=== PATIENT | female | born 1985 | race African-American/Black ===

== ENCOUNTER 2017-09-05 02:56 | Emergency (ER) | payer BC ==
--- NOTE | 2017-09-05 03:25 | RADIOLOGY REPORT (SQ) ---
EXAM DESCRIPTION: CT HEAD WITHOUT COMPLETED DATE/TIME: 09/05/2017 3:13 am REASON FOR STUDY: FALL WITH DIRECT BLOW TO HEAD COMPARISON: None. TECHNIQUE: Axial images acquired through the brain without intravenous contrast. Images reviewed wi th bone, brain and subdural windows. Images stored on PACS. All CT scanners at this facility use dose modulation, iterative reconstruction, and/or weight based d osing when appropriate to reduce radiation dose to as low as reasonably achievable (ALARA). [facility]: Dose Right [facility]: CareDose [facility]: Dose Right [facility]: Teradose 4D [facility]: [employer] RADIATION DOSE: Up-to-date CT equipment and radiation dose reduction techniques were employed. CTDIv ol: 64.6 mGy. DLP: 1163 mGy-cm. mGy. LIMITATIONS: None. FINDINGS: VENTRICLES: Normal size and contour. CEREBRUM: No mass effect. No hemorrhage. No midline shift. Normal booth/white matter differentiatio n. No evidence for acute territorial infarction. CEREBELLUM: No mass effect. No hemorrhage. No alteration of density. No evidence for acute infarct ion. EXTRAAXIAL SPACES: No fluid collections. ORBITS AND GLOBE: Symmetrical contour of the globes. CALVARIUM: No depressed skull fracture. PARANASAL SINUSES: No air-fluid level. SOFT TISSUES: No hematoma. IMPRESSION: NO ACUTE INTRACRANIAL IMAGING FINDINGS. EVIDENCE OF ACUTE STROKE: NO. COMMENT: Quality ID # [id number]: Final reports with documentation of one or more dose reduction techniques (e.g., Automated exposure control, adjustment of the mA and/or kV according to patient size, use of iterative reconstruction technique) TECHNICAL DOCUMENTATION: JOB ID: [id number] [employer]- All Rights Reserved
[2017-09-05] MEDS ORDERED: OXYCODONE HCL IR 5 MG TABLET PO ONE (03:27)
[2017-09-05] MEDS ORDERED: ONDANSETRON 4 MG TAB.RAPDIS PO ONE (03:27)
--- NOTE | 2017-09-05 03:29 | ER Document Report ---
ED Fall - General Chief Complaint: Fall Stated Complaint: RIGHT ARM PAIN,HEADACHE Time Seen by Provider: 09/05/17 03:27 Notes: Patient is a 31-year-old female comes emergency department for chief complaint of fall injury. She states that she was having intercourse with her when she accidentally fell off the bed which is about 3-1/2 feet off the ground onto a carpet floor, she hit her head on the right side, she hit her right elbow on the floor. She states she was dazed for about 15 seconds and then she threw up. She states she feels mildly nauseated at this time but currently her only painful area is her right elbow. She denies back pain, numbness, visual changes , current headache. She takes no daily medications. TRAVEL OUTSIDE OF THE U.S. IN LAST 30 DAYS: No - Related data Allergies/Adverse Reactions: acetaminophen Adverse Reaction (Verified 09/05/17 03:04) Past Medical History - General Information source: Patient - Social History Smoking Status: Never Smoker Frequency of alcohol use: None Drug Abuse: None Lives with: Family Family History: Reviewed & Not Pertinent Patient has suicidal ideation: No Patient has homicidal ideation: No - Medical History Medical History: Negative Renal/ Medical History: Denies: Hx Peritoneal Dialysis Past Surgical History: Reports: Hx Tonsillectomy - Immunizations Immunizations up to date: Yes Hx Diphtheria, Pertussis, Tetanus Vaccination: Yes Review of Systems - Review of Systems Constitutional: No symptoms reported EENT: No symptoms reported Cardiovascular: No symptoms reported Respiratory: No symptoms reported Gastrointestinal: See HPI Genitourinary: No symptoms reported Female Genitourinary: No symptoms reported Musculoskeletal: See HPI Skin: No symptoms reported Hematologic/Lymphatic: No symptoms reported Neurological/Psychological: See HPI Physical Exam - Vital signs Vitals: Temp Pulse Resp BP Pulse Ox 98.4 F 76 16 113/71 98 09/05/17 02:59 09/05/17 02:59 09/05/17 02:59 09/05/17 02:59 09/05/17 02:59 Interpretation: Normal - General General appearance: Appears well, Alert In distress: None - HEENT Head: Normocephalic, Atraumatic Eyes: Normal Pupils: PERRL - Respiratory Respiratory status: No respiratory distress Chest status: Nontender Breath sounds: Normal Chest palpation: Normal - Cardiovascular Rhythm: Regular Heart sounds: Normal auscultation Murmur: No - Abdominal Inspection: Normal Distension: No distension Bowel sounds: Normal Tenderness: Nontender Organomegaly: No organomegaly - Back Back: Normal, Nontender. No: Tender, Vertebra tenderness - No tenderness over the neck/cervical spine, thoracic spine, lumbar spine, full range of motion of all extremities except for painful movement of the right elbow, normal distal neurovascular exam, no saddle anesthesia, no ecchymosis or signs of trauma - Extremities General upper extremity: Other - Pain specifically over the right elbow joint, patient complains with range of motion of the elbow, no swelling or bruising noted, normal shoulder, wrist, hand exam. General lower extremity: Normal inspection, Nontender, Normal color, Normal ROM , Normal temperature, Normal weight bearing. No: Teresa's sign - Neurological Neuro grossly intact: Yes Cognition: Normal Orientation: AAOx4 [place] Coma Scale Eye Opening: Spontaneous Andres Coma Scale Verbal: Oriented Andres Coma Scale Motor: Obeys Commands [place] Coma Scale Total: 15 Speech: Normal Motor strength normal: LUE, RUE, LLE, RLE Sensory: Normal - Psychological Associated symptoms: Normal affect, Normal mood - Skin Skin Temperature: Warm Skin Moisture: Dry Skin Color: Normal Course - Re-evaluation Re-evalutation: Normal neurological exam. Patient does not appear to be in any distress, she is alert and well-appearing. Unremarkable back exam, patient complaining of a lot of pain over the elbow but no signs of trauma, x-ray unremarkable. CT was performed by triage before I saw the patient, she did have an episode of vomiting reportedly, she does not have a headache on my evaluation, neurological exam is normal, no concerning deficits or symptoms reported otherwise. Discussed postconcussive syndrome, head injury precautions, patient was provided with a sling for her elbow because she wanted it. Discussed range of motion of the elbow, treatment of the elbow and head injury, follow-up recommendations, return precautions. Patient and family state understanding and agreement. - Vital Signs Vital signs: Temp Pulse Resp BP Pulse Ox 98.5 F 88 18 110/75 98 09/05/17 05:15 09/05/17 05:15 09/05/17 05:15 09/05/17 05:15 09/05/17 05:15 Discharge - Discharge Clinical Impression: Right elbow pain Fall Qualifiers: Encounter type: initial encounter Qualified Code(s): W19.XXXA - Unspecified fall, initial encounter Head injury Qualifiers: Encounter type: initial encounter Qualified Code(s): S09.90XA - Unspecified injury of head, initial encounter Condition: Stable Disposition: HOME, SELF-CARE Additional Instructions: CAT scan of the head and x-ray of the elbow show no concerning findings. You most likely will have some postconcussive symptoms after hitting your head, this will resolve with time, see postconcussive symptoms instructions below. Ice the elbow 3-4 times for 10-15 minutes today, take the medications as prescribed. Also follow the head injury precautions listed below. Return to the emergency department for any concerning symptoms. Head Injury Precautions At this point, there is no evidence that your head injury is serious. Observation is necessary, however. Take only clear liquids for the first few hours, unless told otherwise by the doctor. If no pain medication was prescribed, you may take acetaminophen according to the directions on the bottle. Do not take any medication that may alter your level of alertness (unless you've discussed it with the doctor first) . Limit activity for the first 24 hours. Bed rest is best. During the first 24 hours, check to see approximately every two to three hours that the patient is easily arousable, responds normally, and can perform common tasks such as walking without difficulty. Contact your doctor or go to the hospital if any of the following things occur: Persistent vomiting, difficulty in arousing the patient, worsening or continued headache, or failure to improve as expected. Head injuries can cause symptoms that persist for a few days or even a few weeks. Post-Concussion Syndrome Post-concussion syndrome often follows a head injury. Dizziness, mild nausea, mild headache, trouble concentrating, and a general sense of "not being right" may persist for a week or two. This is a frequent complication of concussion. However, if the symptoms worsen, or new symptoms develop, you should be re- examined by the physician. There is no specific cure for post-concussion syndrome. You can take mild pain medication such as ibuprofen or acetaminophen. While you should not drive if you are dizzy, you can get back to your regular activities as quickly as the symptoms will allow. And while vigorous exercise may worsen the headache, mild physical activity often is helpful. Sitting and thinking about your symptoms will worsen them. If difficulties continue, you may need referral for special therapy to help you regain full mental function. Call the physician if you are worsening, or if symptoms are still present in one week. Report any new symptoms immediately. Prescriptions: Methocarbamol [Robaxin 500 mg Tablet] 500 mg PO QID PRN #20 tablet PRN Reason: Naproxen [Naprosyn 375 Mg Tablet] 375 mg PO BID #20 tablet Forms: Return to Work, Treatment of Relative/Child
--- NOTE | 2017-09-05 04:08 | RADIOLOGY REPORT (SQ) ---
EXAM DESCRIPTION: ELBOW RIGHT OVER 2 VIEWS COMPLETED DATE/TIME: 09/05/2017 3:25 am REASON FOR STUDY: FALL . Pain at the posterior aspect of the right elbow. COMPARISON: None. NUMBER OF VIEWS: Four views. TECHNIQUE: AP, lateral, and both oblique radiographic images acquired of the right elbow. LIMITATIONS: None. FINDINGS: MINERALIZATION: Normal. BONES: No acute fracture or dislocation. JOINT: No effusion. SOFT TISSUES: No soft tissue swelling. No radiopaque foreign body. IMPRESSION: NO RADIOGRAPHIC EVIDENCE OF ACUTE INJURY. TECHNICAL DOCUMENTATION: JOB ID: [id number] [place]-[id number] 2010 [employer]- All Rights Reserved
[2017-09-05 05:16] VITALS: BP 110/75
== END 2017-09-05 05:15 | disposition home or self-care (01) ==
LOC: ER 02:56
DX: S09.90XA Unspecified injury of head, initial encounter (principal); M25.521 Pain in right elbow; W06.XXXA Fall from bed, initial encounter; Y93.89 Activity, other specified; R11.2 Nausea with vomiting, unspecified
CPT/HCPCS: 99284; 73080; 70450; S0119

== ENCOUNTER 2018-04-12 03:23 | Emergency (ER) | payer BC ==
[2018-04-12 03:49] VITALS: BP 139/67
== END 2018-04-12 05:04 | disposition left against medical advice (07) ==
LOC: ER 03:23
DX: Z53.21 Procedure and treatment not carried out due to patient leaving prior to being seen by health care provider (principal)

== ENCOUNTER 2018-04-12 11:53 | Emergency (ER) | payer BC, OTHER ==
[2018-04-12] MEDS ORDERED: MAG HYDROX/AL HYDROX/SIMETH SUSP 30 ML UDCUP PO ONE (12:25)
[2018-04-12] MEDS ORDERED: LIDOCAINE 2% VISCOUS SOLN 20 ML UDCUP PO ONE (12:25)
--- NOTE | 2018-04-12 12:28 | ER Document Report ---
ED Medical Screen (RME) - General Chief Complaint: Pain All Over Stated Complaint: ABDOMINAL PAIN Time Seen by Provider: 04/12/18 12:10 Notes: RAPID MEDICAL EVALUATION DISCLOSURE I have seen this patient as part of a Rapid Medical Evaluation and, if applicable, placed any initially appropriate orders. The patient will be seen and fully evaluated, including a full history and physical exam, by a provider ( in Main ED or Fast Track) when a room becomes available. 32-year-old female here with complaints of "skin pain", shortness of breath, headache, and abdominal pain ongoing for the past few days. She has also had constipation and black stools. She was seen at the [facility] and was diagnosed with GI bleed and placed on Prilosec. She states that when she started taking the Prilosec is when she started to have these other symptoms. She denies any nausea vomiting diarrhea dysuria. She does drink a sixpack of alcohol every weekend but denies any history of pancreatitis colitis diverticulitis. At the [facility], they thought she had peptic ulcers so they started her on the Prilosec for this reason. EXAM CTAB Mild to moderate diffuse TTP Patient screams in pain when her skin is touched very lightly TRAVEL OUTSIDE OF THE U.S. IN LAST 30 DAYS: No - Related Data Allergies/Adverse Reactions: acetaminophen Adverse Reaction (Verified 04/12/18 11:56) Past Medical History - Social History Chew tobacco use (# tins/day): No Frequency of alcohol use: Social Drug Abuse: None Renal/ Medical History: Denies: Hx Peritoneal Dialysis GI Medical History: Reports: Hx Ulcer Past Surgical History: Reports: Hx Tonsillectomy - Immunizations Immunizations up to date: Yes Hx Diphtheria, Pertussis, Tetanus Vaccination: Yes Physical Exam - Vital signs Vitals: Temp Pulse Resp BP Pulse Ox 97.9 F 98 24 H 112/65 100 04/12/18 12:03 04/12/18 12:03 04/12/18 12:03 04/12/18 12:03 04/12/18 12:03 Course - Vital Signs Vital signs: Temp Pulse Resp BP Pulse Ox 97.9 F 98 24 H 112/65 100 04/12/18 12:03 04/12/18 12:03 04/12/18 12:03 04/12/18 12:03 04/12/18 12:03
--- NOTE | 2018-04-12 12:49 | ER Document Report ---
ED General <JOSE WALSH - Last Filed: 04/12/18 21:36> - General Mode of Arrival: Ambulatory Information source: Patient, Parent, Relative - TRAVEL OUTSIDE OF THE U.S. IN LAST 30 DAYS: No <KYLEIGH COREY - Last Filed: 04/13/18 08:24> - General Chief Complaint: Pain All Over Stated Complaint: ABDOMINAL PAIN Time Seen by Provider: 04/12/18 12:10 - HPI Notes: 32-year-old female with a history of peptic ulcers presents to the ED with complaints of fever, shortness of breath, headache, nausea, abdominal pain with feeling of burning skin all over. Patient was diagnosed with a lower GI bleed at the [facility] 6 days ago, due to having a positive occult stool, was started on oral omeprazole. Patient states her headaches started when she started to take the omeprazole. Patient returned from a road trip to [place] last night, was in the car for 8 hours to and from [place]. Patient's shortness of breath started last night along with her fever. Patient states that they did drink alcohol while in [place] as he had a family libertarian for . Patient did not get a flu shot this year. Denies . Aside from Prilosec, no new medications. Patient typically has a bowel movement 1-2 times a week, denies any geo blood in stool. States her last bowel movement was 5 days ago, which is normal for her. Patient is supposed to follow-up with her primary care provider at the [facility] for her lower GI bleed next week. gave patient ibuprofen this morning to help fight the fever. Patient allergy to Tylenol as that she gets rebound headaches. Denies any trauma to body. Denies chest pain,palpitations, vomiting, diarrhea, abdominal pain, hematuria,blurred vision, double vision, loss of vision, speech changes, LH, dizziness, syncope, wheezing, ST, URI, neck pain, weakness, bowel or bladder dysfunction, saddle anesthesia, numbness or tingling in bilateral upper or lower extremities equally , muscle paralysis, weakness in bilateral upper or lower extremities equally or rash. Denies IV drug use. (KYLEIGH CROEY) - Related Data Allergies/Adverse Reactions: acetaminophen Adverse Reaction (Verified 04/12/18 11:56) Past Medical History - General Information source: Patient, Parent, Relative - Social History Smoking Status: Current Some Day Smoker Chew tobacco use (# tins/day): No Frequency of alcohol use: Social Drug Abuse: None Family History: Reviewed & Not Pertinent Patient has suicidal ideation: No Patient has homicidal ideation: No Renal/ Medical History: Denies: Hx Peritoneal Dialysis GI Medical History: Reports: Hx Ulcer Past Surgical History: Reports: Hx Tonsillectomy - Immunizations Immunizations up to date: Yes Hx Diphtheria, Pertussis, Tetanus Vaccination: Yes <KYLEIGH COREY - Last Filed: 04/13/18 08:24> Review of Systems - Review of Systems Constitutional: See HPI EENT: No symptoms reported Cardiovascular: No symptoms reported Respiratory: See HPI Gastrointestinal: See HPI Genitourinary: No symptoms reported Female Genitourinary: No symptoms reported Musculoskeletal: No symptoms reported Skin: See HPI Hematologic/Lymphatic: No symptoms reported Neurological/Psychological: No symptoms reported <KYLEIGH COREY - Last Filed: 04/13/18 08:24> Physical Exam <JOSE WALSH - Last Filed: 04/12/18 21:36> <KYLEIGH COREY - Last Filed: 04/13/18 08:24> - Vital signs Vitals: Temp Pulse Resp BP Pulse Ox 97.9 F 98 24 H 112/65 100 04/12/18 12:03 04/12/18 12:03 04/12/18 12:03 04/12/18 12:03 04/12/18 12:03 - Notes Notes: PHYSICAL EXAMINATION: GENERAL: Well-appearing, well-nourished and in no acute distress. HEAD: Atraumatic, normocephalic. EYES: Pupils equal round and reactive to light, extraocular movements intact, conjunctiva are normal. ENT: Nares patent, oropharynx clear without exudates. Moist mucous membranes. NECK: Normal range of motion, supple without lymphadenopathy LUNGS: Breath sounds clear to auscultation bilaterally and equal. No wheezes rales or rhonchi. HEART: Regular rate and rhythm without murmurs ABDOMEN: Soft, nontender, nondistended abdomen. No guarding, no rebound. No masses appreciated. Female : deferred Musculoskeletal: Normal range of motion, no pitting or edema. No cyanosis. NEUROLOGICAL: Cranial nerves grossly intact. Normal speech, normal gait. Normal sensory, motor exams PSYCH: Normal mood, normal affect. SKIN: Warm, Dry, normal turgor, no rashes or lesions noted. (KYLEIGH COREY) Course - Laboratory Result Diagrams: 04/12/18 12:35 04/12/18 12:35 <JOSE WALSH - Last Filed: 04/12/18 21:36> - Laboratory Result Diagrams: 04/12/18 12:35 04/12/18 12:35 <KYLEIGH COREY - Last Filed: 04/13/18 08:24> - Re-evaluation Re-evalutation: 04/12/18 21:35 Venous Doppler is negative. Patient asymptomatic on reevaluation, eating, well- appearing, asking to leave. Patient provided a copy of her abnormal ultrasound which shows fibroid versus neoplasm. Provided with copy of the report and a disc, instructed her to call on Friday provider to get [facility] so she can be seen and have this treated. Discussed return precautions. Discussed medication prescriptions. Patient and family state understanding and agreement. (JOSE WALSH) 04/12/18 18:54 32-year-old female afebrile, vitals stable and in no distress presents for evaluation of shortness of breath, fever, abdominal pain with recent travel to [place] via private car and returned last night with symptoms had begun. CBC negative for leukocytosis, patient is slightly anemic. CMP negative for renal or hepatic deficiencies, no electrolyte disturbances. Urinalysis was negative for nitrates hematuria. Patient did have an elevated d-dimer at 1.50. Cardiac enzymes negative, EKG negative for STEMI or acute findings. Occult stool negative. Influenza negative. CT negative for any acute PE, dissecting aortic aneurysm. CTA negative for any acute trauma abdominal pathologies. CT pelvis showed a hyperdense mass to endometrial canal, will obtain transvaginal ultrasound with Doppler. Bleeding venous Doppler bilateral ultrasounds due to elevated d-dimer. Patient remains asymptomatic, vitals stable and in no distress. Patient given IV fluids. Disposition given to MARYBETH Stephenson at 1915 (KYLEIGH COREY) - Vital Signs Vital signs: Temp Pulse Resp BP Pulse Ox 98.0 F 98 24 H 110/77 100 04/12/18 22:01 04/12/18 12:03 04/12/18 22:01 04/12/18 22:01 04/12/18 21:32 - Laboratory Laboratory results interpreted by me: 04/12/18 04/12/18 04/12/18 12:35 12:35 15:00 Hgb 11.1 L Hct 34.5 L MCV 78 L MCH 25.0 L RDW 17.1 H Seg Neutrophils % 90.2 H Lymphocytes % 5.7 L Absolute Lymphocytes 0.3 L D-Dimer 1.33 H Urine Urobilinogen 2.0 H Ur Leukocyte Esterase TRACE H Discharge <FLORATRANGJOSE - Last Filed: 04/12/18 21:36> <MADHAVKYLEIGH Crow - Last Filed: 04/13/18 08:24> - Discharge Clinical Impression: Gastritis Qualifiers: Gastritis type: other gastritis Chronicity: acute Gastritis bleeding: without bleeding Qualified Code(s): K29.00 - Acute gastritis without bleeding Condition: Good Disposition: HOME, SELF-CARE Instructions: Dehydration ([facility]), Gastritis ([facility]) Additional Instructions: Follow-up with [facility] [employer] [employer] and primary care provider as directed. Stop taking omeprazole and take Pepcid as directed. Follow a bland diet. Prescriptions: Famotidine [Pepcid 20 mg Tablet] 20 mg PO DAILY #30 tablet Ondansetron [Zofran Odt 4 mg Tablet] 1 - 2 tab PO Q4H PRN #15 tab.rapdis PRN Reason: For Nausea/Vomiting Forms: Parent Work Note, Return to Work Referrals: KIMBERLY DILLON MD [ACTIVE STAFF] - Follow up in 3-5 days ADILIA RUFF MD [COMMUNITY BASED STAFF] - Follow up in 1 month
[2018-04-12 12:52] LABS: ABSOLUTE LYMPHOCYTES (AUTO) 0.3 10^3/uL (0.5-4.7); ABSOLUTE MONOCYTES (AUTO) 0.2 10^3/uL (0.1-1.4); ABSOLUTE NEUT (AUTO) 4.2 10^3/uL (1.7-8.2); BASOPHILS % (AUTO) 0.3 % (0-2); EOSINOPHILS % (AUTO) 0.1 % (0-6); HEMATOCRIT 34.5 % (36.0-47.0); HEMOGLOBIN 11.1 g/dL (12.0-15.5); LYMPHOCYTES % (AUTO) 5.7 % (13-45); MEAN CORPUSCULAR HGB CONC 32.1 g/dL (32.0-36.0); MEAN CORPUSCULAR VOLUME 78 fl (80-97); MONOCYTES % (AUTO) 3.7 % (3-13); PLATELET COUNT 329 10^3/uL (150-450); RED BLOOD COUNT 4.42 10^6/uL (3.72-5.28); RED CELL DISTRIBUTION WIDTH 17.1 % (11.5-14.0); SEGMENTED NEUTROPHILS % (AUTO) 90.2 % (42-78); TOTAL CELLS COUNTED % (AUTO) 100 %; WHITE BLOOD COUNT 4.7 10^3/uL (4.0-10.5)
[2018-04-12 13:11] LABS: ALANINE AMINOTRANSFERASE 13 U/L (9-52); ALBUMIN 4.1 g/dL (3.5-5.0); ALKALINE PHOSPHATASE 49 U/L (38-126); ANION GAP 12 (5-19); ASPARTATE AMINO TRANSFERASE 27 U/L (14-36); BILIRUBIN,DIRECT 0.2 mg/dL (0.0-0.4); BILIRUBIN,TOTAL 0.9 mg/dL (0.2-1.3); BLOOD UREA NITROGEN 10 mg/dL (7-20); CALCIUM 9.5 mg/dL (8.4-10.2); CARBON DIOXIDE 26 mmol/L (22-30); CHLORIDE 104 mmol/L (98-107); GLUCOSE 101 mg/dL (75-110); LIPASE 57.3 U/L (23-300); POTASSIUM 3.8 mmol/L (3.6-5.0); SODIUM 141.9 mmol/L (137-145); TOTAL PROTEIN 7.4 g/dL (6.3-8.2)
[2018-04-12] MEDS ORDERED: NORMAL SALINE 1000 ML 1,000 ML IV ONE (13:16)
[2018-04-12] MEDS ORDERED: MORPHINE SULFATE 10 MG/ML INJ IV ONE ×2 (13:16→18:09)
--- NOTE | 2018-04-12 13:17 | RADIOLOGY REPORT (SQ) ---
EXAM DESCRIPTION: ACUTE ABDOMEN SERIES COMPLETED DATE/TIME: 04/12/2018 1:03 pm REASON FOR STUDY: SOB abd pain COMPARISON: None. NUMBER OF VIEWS: Three views. TECHNIQUE: Frontal chest, supine abdomen and upright/decubitus abdomen radiographic images acquired. LIMITATIONS: None. FINDINGS: CHEST: Lungs clear of infiltrates. FREE AIR: None. No abnormal gas collections. BOWEL GAS PATTERN: Nonobstructive pattern. No dilated loops or air fluid levels. CALCIFICATIONS: No suspicious calcifications. HARDWARE: None in the abdomen. SOFT TISSUES: No gross mass or suggestion of organomegaly. BONES: No acute fracture. No worrisome bone lesions. OTHER: No other significant finding. IMPRESSION: NO RADIOGRAPHIC EVIDENCE FOR ACUTE ABDOMINAL DISEASE. TECHNICAL DOCUMENTATION: JOB ID: [id number] [employer]- All Rights Reserved Reading location - IP/workstation name: [email or web address]
[2018-04-12 13:53] LABS: CREATINE KINASE MB 0.28 ng/mL (<4.55)
[2018-04-12 13:54] LABS: TROPONIN I < 0.012 ng/mL
[2018-04-12 13:56] LABS: A TYPE INFLUENZA AG NEGATIVE (NEGATIVE); B INFLUENZA AG NEGATIVE (NEGATIVE)
[2018-04-12 15:28] LABS: APPEARANCE,URINE CLEAR; BILIRUBIN,URINE NEGATIVE (NEGATIVE); COLOR,URINE YELLOW; GLUCOSE, URINE NEGATIVE (NEGATIVE); KETONES,URINE NEGATIVE (NEGATIVE); LEUKOCYTE ESTERASE,URINE TRACE (NEGATIVE); NITRITE,URINE NEGATIVE (NEGATIVE); PROTEIN,URINE NEGATIVE (NEGATIVE)
--- NOTE | 2018-04-12 16:54 | RADIOLOGY REPORT (SQ) ---
EXAM DESCRIPTION: CT ABD/PELVIS WITH IV ORAL COMPLETED DATE/TIME: 04/12/2018 4:24 pm REASON FOR STUDY: fever, abd pain with hx of GI bleed dx on 04/06 . Diffuse abdominal pain. COMPARISON: None. TECHNIQUE: CT scan of the abdomen and pelvis performed using helical scanning technique with dynamic intravenous contrast injection. No oral contrast. Images reviewed with lung, soft tissue, and bone windows. Reconstructed coronal and sagittal MPR images reviewed. Delayed images for evaluation of the urinary system also acquired. All images stored on PACS. All CT scanners at this facility use dose modulation, iterative reconstruction, and/or weight based d osing when appropriate to reduce radiation dose to as low as reasonably achievable (ALARA). [facility]: Dose Right [facility]: CareDose [facility]: Dose Right [facility]: Teradose 4D [facility]: [employer] CONTRAST TYPE AND DOSE: contrast/concentration: Isovue 370.00 mg/ml; Total Contrast Delivered: 72.0 ml; Total Saline Delivered: 66.0 ml RENAL FUNCTION: Creatinine: 0.7 RADIATION DOSE: CT Rad equipment meets quality standard of care and radiation dose reduction techniq ues were employed. CTDIvol: 6.6 - 8.6 mGy. DLP: 822 mGy-cm.. LIMITATIONS: None. FINDINGS: LOWER CHEST: Chronic scarring in lung bases. LIVER: No abnormality seen. SPLEEN: No abnormality seen. PANCREAS: No abnormality seen. GALLBLADDER: No abnormality seen. ADRENAL GLANDS: No abnormality seen. RIGHT KIDNEY AND URETER: No abnormality seen. LEFT KIDNEY AND URETER: No abnormality seen. AORTA AND VESSELS: No abnormality seen. Renal arteries, SMA, celiac without stenosis. RETROPERITONEUM: No retroperitoneal adenopathy, hemorrhage or masses. Retroaortic left renal vein. BOWEL AND PERITONEAL CAVITY: No masses or inflammatory changes. No free fluid or peritoneal masses. APPENDIX: No abnormality seen. PELVIS: Uterus: Uterus is prominent with evidence of uterine fibroids anteriorly. Centrally within the uterus there is evidence of a prominent mass which could be secondary to hemorrhage within the en dometrial canal. Follow-up with pelvic ultrasound could be useful. Urinary bladder: No abnormality seen. Adnexal regions: Follicles of the ovaries. Follicular cyst of right ovary. ABDOMINAL WALL: No masses. No hernias. BONES: No abnormality seen. No abnormality. IMPRESSION: 1. Enlarged fibroid uterus. Within the uterus there is a prominent hyperdense mass or endometrial thickening or hemorrhage of the endometrial canal. Follow-up with ultrasound could be u ses further evaluation. TECHNICAL DOCUMENTATION: JOB ID: [id number] Quality ID # [id number]: Final reports with documentation of one or more dose reduction techniques (e.g., Au tomated exposure control, adjustment of the mA and/or kV according to patient size, use of iterative reconstruction technique) 2010 [employer]- All Rights Reserved Reading location - IP/workstation name: [email or web address]
[2018-04-12] MEDS ORDERED: NORMAL SALINE 1000 ML 1,000 ML IV PRN ×2 (18:03→18:04)
--- NOTE | 2018-04-12 18:42 | RADIOLOGY REPORT (SQ) ---
EXAM DESCRIPTION: CTA CHEST COMPLETED DATE/TIME: 04/12/2018 6:23 pm REASON FOR STUDY: elevated ddimer COMPARISON: None. TECHNIQUE: CT scan of the chest performed using helical scanning technique with dynamic intravenous contrast injection. Images reviewed with lung, soft tissue and bone windows. Reconstructed coronal and sagittal MPR images reviewed. Additional 3 dimensional post-processing performed to develop Maximal Intensity Projection images (ID P). All images stored on PACS. All CT scanners at this facility use dose modulation, iterative reconstruction, and/or weight based d osing when appropriate to reduce radiation dose to as low as reasonably achievable (ALARA). [facility]: Dose Right [facility]: CareDose [facility]: Dose Right [facility]: Teradose 4D [facility]: [facility] [place] CONTRAST TYPE AND DOSE: contrast/concentration: Isovue 370.00 mg/ml; Total Contrast Delivered: 65.0 ml; Total Saline Delivered: 105.0 ml Contrast bolus optimized for the pulmonary arteries. Not diagnostic for the aorta. RENAL FUNCTION: BUN 10 creatinine 0.7. RADIATION DOSE: CT Rad equipment meets quality standard of care and radiation dose reduction techniq ues were employed. CTDIvol: 14.3 - 19.8 mGy. DLP: 515 mGy-cm. . LIMITATIONS: None. FINDINGS: LUNGS AND PLEURA: No masses, infiltrates, pneumothorax. No pleural effusions, calcificati ons. AORTA AND GREAT VESSELS: No aneurysm. Contrast bolus not optimized for the aorta. HEART: No pericardial effusion. No significant coronary artery calcifications. PULMONARY ARTERIES: No emboli visualized in the main pulmonary arteries or the segmental branches. HILAR AND MEDIASTINAL STRUCTURES: No identified masses or abnormal nodes. HARDWARE: None in the chest. UPPER ABDOMEN: No significant findings. Limited exam. THYROID AND OTHER SOFT TISSUES: No masses. No adenopathy. BONES: No acute or significant finding. 3D MIPS: Confirm above findings. OTHER: No other significant finding. IMPRESSION: NORMAL CTA OF THE CHEST. NO PULMONARY EMBOLI. COMMENT: Quality ID # [id number]: Final reports with documentation of one or more dose reduction techniques (e.g., Automated exposure control, adjustment of the mA and/or kV according to patient size, use of iterative reconstruction technique) TECHNICAL DOCUMENTATION: JOB ID: [id number] [employer]- All Rights Reserved Reading location - IP/workstation name: [email or web address]
--- NOTE | 2018-04-12 21:10 | RADIOLOGY REPORT (SQ) ---
EXAM DESCRIPTION: VENOUS BILATERAL LOWER COMPLETED DATE/TIME: 04/12/2018 9:02 pm REASON FOR STUDY: elevated d dimer, r/o dvt, recent car trip to [place] COMPARISON: None. TECHNIQUE: Dynamic and static booth scale and color images acquired of both lower extremity venous sy stems. Selected spectral images acquired with additional compression and augmentation maneuvers. Imag es stored on PACS. LIMITATIONS: None. FINDINGS: RIGHT LEG COMMON FEMORAL AND FEMORAL: Normal phasicity, compression and augmentation. No visualized echogenic m aterial on booth scale. No defects on color images. POPLITEAL: Normal compression and augmentation. No visualized echogenic material on booth scale. No de fects on color images. CALF VESSELS: Normal compression and augmentation. No visualized echogenic material on booth scale. No defects on color image. GSV AND SSV: Normal compression. No visualized echogenic material on booth scale. No defects on color images. ANY DEEP VENOUS INSUFFICIENCY: Not evaluated. ANY EVIDENCE OF POPLITEAL CYST: No. OTHER: No other significant finding. LEFT LEG COMMON FEMORAL AND FEMORAL: Normal phasicity, compression and augmentation. No visualized echogenic m aterial on booth scale. No defects on color images. POPLITEAL: Normal compression and augmentation. No visualized echogenic material on booth scale. No de fects on color images. CALF VESSELS: Normal compression and augmentation. No visualized echogenic material on booth scale. No defects on color images. GSV AND SSV: Normal compression. No visualized echogenic material on booth scale. No defects on color images. ANY DEEP VENOUS INSUFFICIENCY: Not evaluated. ANY EVIDENCE POPLITEAL CYST: No. OTHER: No other significant finding. IMPRESSION: NO EVIDENCE DVT OR SVT IN EITHER LEG. TECHNICAL DOCUMENTATION: JOB ID: [id number] [employer]- All Rights Reserved Reading location - IP/workstation name: [email or web address]
--- NOTE | 2018-04-12 21:10 | RADIOLOGY REPORT (SQ) ---
EXAM DESCRIPTION: U/S NON OB PEL TV W/DOPPLER COMPLETED DATE/TIME: 04/12/2018 8:57 pm REASON FOR STUDY: hyperdense mass vs. hemorrhage of endo canal COMPARISON: CT dated 04/12/2018. TECHNIQUE: Dynamic and static grayscale images acquired of the pelvis via transvaginal approach and recorded on PACS. Additional selected color Doppler and spectral images recorded. LIMITATIONS: None. FINDINGS: UTERUS: Contour normal. No mass. ENDOMETRIAL STRIPE: Heterogenous mass within the endometrial canal measuring 4.9 x 6 x 6.3 cm[address] er evaluation demonstrates blood flow. CERVIX: No nabothian cysts. RIGHT OVARY AND DOPPLER: Ovary not visualized. LEFT OVARY AND DOPPLER: Ovary not visualized. FREE FLUID: None noted. OTHER: No other significant finding. MEASUREMENTS: UTERUS: 8.1 x 11.3 cm. ENDOMETRIAL STRIPE: 2.4 cm. RIGHT OVARY: Not visualized. LEFT OVARY: Not visualized. IMPRESSION: HETEROGENOUS MASS WITHIN THE ENDOMETRIAL CANAL. THIS COULD BE A SUBMUCOSAL FIBROID VERS US OTHER ENDOMETRIAL NEOPLASM. TECHNICAL DOCUMENTATION: JOB ID: [id number] [employer]- All Rights Reserved Rev-04/03 Reading location - IP/workstation name: [email or web address]
[2018-04-12 22:08] VITALS: BP 110/77
--- NOTE | 2018-04-12 23:22 | EKG REPORT ---
SEVERITY:- NORMAL ECG - SINUS RHYTHM : Confirmed by: Vijay Moss MD 12-Apr-2018 23:21:45
== END 2018-04-12 22:11 | disposition home or self-care (01) ==
LOC: ER 11:53
DX: K29.00 Acute gastritis without bleeding (principal); M79.1 Myalgia; R06.02 Shortness of breath; R50.9 Fever, unspecified; R51 Headache; R11.0 Nausea; R10.9 Unspecified abdominal pain; F17.200 Nicotine dependence, unspecified, uncomplicated
CPT/HCPCS: 93005; 96376; 99284; 96361; 96374; 36415; 87086; 82553; 82550; 83690; 84703; 85025; 82272; 80053; 81001; 84484; 85379; 83605; 87804; 93970; 74022; 76830; 93976; 71275; 74177; 93010; J3490; J2270; J7030

== ENCOUNTER 2020-01-28 05:29 | Day surgery (SDC) | payer OTHER, BC ==
[2020-01-25 11:24] LABS: APPEARANCE,URINE SLIGHTLY-CLOUDY; BILIRUBIN,URINE NEGATIVE (NEGATIVE); COLOR,URINE YELLOW; GLUCOSE, URINE NEGATIVE (NEGATIVE); KETONES,URINE NEGATIVE (NEGATIVE); LEUKOCYTE ESTERASE,URINE NEGATIVE (NEGATIVE); NITRITE,URINE NEGATIVE (NEGATIVE); PROTEIN,URINE NEGATIVE (NEGATIVE); URINE SPECIFIC GRAVITY 1.021; UROBILINOGEN,URINE NEGATIVE mg/dL (<2.0)
[2020-01-25 11:30] LABS: ALBUMIN 4.5 g/dL (3.5-5.0); ALKALINE PHOSPHATASE 47 U/L (38-126); ANION GAP 10 (5-19); ASPARTATE AMINO TRANSFERASE 23 U/L (14-36); BILIRUBIN,DIRECT 0.2 mg/dL (0.0-0.4); BILIRUBIN,TOTAL 0.4 mg/dL (0.2-1.3); BLOOD UREA NITROGEN 8 mg/dL (7-20); CARBON DIOXIDE 23 mmol/L (22-30); CHLORIDE 107 mmol/L (98-107); GLUCOSE 84 mg/dL (75-110); POTASSIUM 4.4 mmol/L (3.6-5.0); TOTAL PROTEIN 8.2 g/dL (6.3-8.2)
[2020-01-25 11:33] LABS: MEAN CORPUSCULAR HEMOGLOBIN 17.8 pg (27.0-33.4); MEAN CORPUSCULAR HGB CONC 28.4 g/dL (32.0-36.0); MEAN CORPUSCULAR VOLUME 63 fl (80-97); PLATELET COUNT 295 10^3/uL (150-450); RED BLOOD COUNT 4.15 10^6/uL (3.72-5.28); RED CELL DISTRIBUTION WIDTH 19.8 % (11.5-14.0); WHITE BLOOD COUNT 3.8 10^3/uL (4.0-10.5)
[2020-01-25 14:27] LABS: HEMOGLOBIN 7.4 g/dL (12.0-15.5)
[~2020-01-28 05:29] MED LIST: CEFAZOLIN 1 GM/D5W RTU 1 GM/50 ML RTUPB IV PRN; CEFAZOLIN INJ 1 GM VIAL ONE
[2020-01-28 07:01] LABS: HEMATOCRIT 25.6 % (36.0-47.0); MEAN CORPUSCULAR HEMOGLOBIN 17.9 pg (27.0-33.4); MEAN CORPUSCULAR HGB CONC 28.3 g/dL (32.0-36.0); PLATELET COUNT 334 10^3/uL (150-450); RED BLOOD COUNT 4.05 10^6/uL (3.72-5.28); RED CELL DISTRIBUTION WIDTH 19.7 % (11.5-14.0); WHITE BLOOD COUNT 3.6 10^3/uL (4.0-10.5)
[2020-01-28 07:16] LABS: HEMOGLOBIN 7.2 g/dL (12.0-15.5)
[2020-01-28 07:23] LABS: MEAN CORPUSCULAR VOLUME 63 fl (80-97)
[2020-01-28] MEDS ORDERED: MIDAZOLAM 2 MG/2 ML INJ ONE (11:09)
[2020-01-28] MEDS ORDERED: FENTANYL CITRATE INJ/PF 100 MCG/2 ML AMPUL ONE (11:09)
[2020-01-28] MEDS ORDERED: DEXAMETHASONE SOD PHOSPHATE INJ 4 MG/1 ML VIAL ONE (11:10)
[2020-01-28] MEDS ORDERED: ONDANSETRON HCL INJ/PF 4 MG/2 ML SDV ONE (11:10)
[2020-01-28] MEDS ORDERED: PROPOFOL INJ 200 MG/20 ML VIAL IV ONE (11:10)
[2020-01-28] MEDS ORDERED: SUGAMMADEX SODIUM 200 MG/2 ML SDV IV ONE (11:10)
[2020-01-28] MEDS ORDERED: SUCCINYLCHOLINE CHLORIDE INJ 200 MG/10 ML VIAL ONE (11:15)
[2020-01-28] MEDS ORDERED: ROCURONIUM BROMIDE INJ 50 MG/5 ML VIAL IV ONE (11:15)
[2020-01-28] MEDS ORDERED: NEOSTIGMINE METHYLSULFATE 10 MG/10 ML VIAL ONE (11:15)
[2020-01-28] MEDS ORDERED: GLYCOPYRROLATE 1 MG/5 ML VIAL ONE (11:15)
[2020-01-28] MEDS ORDERED: PROMETHAZINE HCL INJ 25 MG/1 ML VIAL IV PRN ×2 (12:38)
[2020-01-28] MEDS ORDERED: FENTANYL CITRATE INJ/PF 100 MCG/2 ML AMPUL IV PRN ×3 (12:38)
[2020-01-28] MEDS ORDERED: MORPHINE SULFATE 10 MG/ML INJ IV PRN (12:38)
[2020-01-28] MEDS ORDERED: MEPERIDINE HCL/PF INJ 25 MG/1 ML DISP.SYRIN IV PRN (12:38)
[2020-01-28] MEDS ORDERED: ONDANSETRON HCL INJ/PF 4 MG/2 ML SDV IV PRN (12:38)
[2020-01-28] MEDS ORDERED: DIPHENHYDRAMINE HCL 50 MG/ML VIAL IV PRN (12:38)
[2020-01-28] MEDS ORDERED: KETOROLAC TROMETHAMINE INJ/PF 30 MG/1 ML SDV IV PRN (14:17)
[2020-01-28] MEDS ORDERED: OXYCODONE HCL SR 10 MG TABLET PO PRN (14:17)
[2020-01-28] MEDS ORDERED: KETOROLAC TROMETHAMINE INJ/PF 30 MG/1 ML SDV ONE (14:51)
[2020-01-28] MEDS ORDERED: MORPHINE SULFATE 10 MG/ML INJ ONE (14:51)
--- NOTE | 2020-01-28 14:54 | Operative Report ---
Operative Report DATE OF SURGERY: 01/28/20 PREOPERATIVE DIAGNOSIS: Pelvic pain. Heavy vaginal bleeding. Fibroid uterus POSTOPERATIVE DIAGNOSIS: Same as above OPERATION: Total abdominal hysterectomy with bilateral salpingenctomy SURGEON: JUSTIN ASTORGA ANESTHESIA: GA TISSUE REMOVED OR ALTERED: Uterus, cervix, bilateral fallopian tubes COMPLICATIONS: None ESTIMATED BLOOD LOSS: 180 INTRAOPERATIVE FINDINGS: Enlarged fibroid uterus, one 9-10 cm and one 3-4 cm. Normal appearing left fallopian tube. Right fallopian tube with small paratubal cysts. PROCEDURE: IV fluids: per anesthesia record Urinary output: 200 cc Findings:as above, enlarged fibroid uterus Position: To recovery room in stable condition Description of procedure: The patient was taken to the operating room and general anesthesia was administered and found to be adequate. She was then placed on the OR table in the supine position. Patient was prepped and draped in usual sterile fashion. Ancef 2 gms was given IV prior to the procedure for infection prophylaxis. Timeout was taken. A Pfannenstiel skin incision was then made approximately 3 cm above the pubic symphysis and carried down to level the rectus fascia. The rectus fascia was then nicked in the midline with a scalpel and the fascial incision was extended laterally with use of curved Saravia scissors. The rectus fascia was then grasped with 2 Kocker clamps elevated and the underlying rectus muscle was dissected off both bluntly and sharply. Any bleeding controlled with cautery. The rectus muscles were then split in the midline and the peritoneum was entered. The peritoneal incision was then extended by manually stretching the peritoneum. The davida retractor was placed and bladder blade was positioned. The bladder was noted to be out of harm's way. 2 Camilla clamps were used to grasp the uterus in an attempt to elevated from the pelvis. The uterus was too bulky to exteriorize. The left fallopian tube was traced to its fimbriated end and then using the LigaSure impact the mesosalpinx was taken down along the left fallopian tube to the level of the uterus left Lupien tube was then crossclamped coagulated cut and removed attention was then turned to the utero-ovarian ligament this was crossclamped with the LigaSure device coagulated and cut next the round ligament on the left was taken down in a similar fashion dissection continued along the lateral aspect on the left skeletonizing the uterine vessels the anterior leaf of the broad ligament was incised to begin creating a bladder flap the uterine arteries were then crossclamped cut and coagulated on the left side attention was then turned to the right side the right fallopian tube was identified and traced to its fimbriated end the right mesosalpinx was then taken down with the LigaSure in a segmental fashion and the tube was crossclamped coagulated and cut both tubes will be sent along with the uterine specimen attempt was made to get to the round ligament on the right but because the uterus was so bulky visualization was poor still the uterus could not be removed to exteriorize. Because of this, a hysterotomy incision was made and the 9 to 10 cm anterior fibroid within the uterus was removed. At this point the right uter ovarian ligament was identified crossclamped coagulated and cut. the round ligament on the right was identified crossclamped, coagulated and cut. The ovarian vessels on the right were skeletonized and the anterior leaf of the broad ligament was dissected anteriorly across the lower uterine segment finishing the bladder flap the bladder was pushed out of harm's way with a damp lap. Dissection continued and the cardinal ligaments and uterosacral ligaments were taken down segmentally with the LigaSure. Colpotomy was then performed and the uterus remaining fibroid and cervix were handed off all specimen including tubes will be sent to the lab for analysis. The vaginal cuff was closed with 0 Vicryl suture in a series of figure of 8 stitches the ipsilateral uterosacral ligaments were incorporated in with cuff closure. The retractor was removed after warm saline irrigation was used to clear all clots and debris from the abdomen and inspection of all pedicles noted hemostasis. The vaginal cuff was noted to be hemostatic , with good closure . The peritoneum was closed with 2-0 chromic in a running fashion. The rectus muscles were then reapproximated and the rectus fascia was closed with a #1 PDS in a running fashion. The subcutaneous tissue was then inspected and any bleeding was controlled with Bovie electrocautery. The subcutaneous tissue was then closed with 2-0 Plain Gut suture in a running fashion. The skin was then closed with 4-0 Monocryl in a running subcuticular fashion. The skin incision was then clean dried and Dermabond was applied over the skin incision. All instrument sponge and needle counts were correct x3 for the procedure the patient tolerated the procedure well. She will proceed to recovery room in stable condition
[2020-01-28 18:48] LABS: HEMATOCRIT 34.7 % (36.0-47.0); MEAN CORPUSCULAR HEMOGLOBIN 20.5 pg (27.0-33.4); MEAN CORPUSCULAR HGB CONC 29.8 g/dL (32.0-36.0); PLATELET COUNT 308 10^3/uL (150-450); RED BLOOD COUNT 5.04 10^6/uL (3.72-5.28); RED CELL DISTRIBUTION WIDTH 25.2 % (11.5-14.0)
[2020-01-28 18:55] LABS: WHITE BLOOD COUNT 16.3 10^3/uL (4.0-10.5)
[2020-01-28 18:56] LABS: HEMOGLOBIN 10.4 g/dL (12.0-15.5); MEAN CORPUSCULAR VOLUME 69 fl (80-97)
[2020-01-28 19:11] LABS: ABSOLUTE LYMPHOCYTES# (MANUAL) 0.8 10^3/uL (0.5-4.7); BASOPHILS % (MANUAL) 0 % (0-2); EOSINOPHILS % (MANUAL) 0 % (0-6); LYMPHOCYTES % (MANUAL) 5 % (13-45); MONOCYTES % (MANUAL) 0 % (3-13); SEGMENTED NEUTROPHILS % (MAN) 95 % (42-78); TOTAL CELLS COUNTED 100
[2020-01-28 19:14] LABS: ANISOCYTOSIS 3+; HYPOCHROMASIA SLIGHT; OVALOCYTES SLIGHT; POIKILOCYTOSIS SLIGHT
[2020-01-28 19:15] LABS: PLATELET COMMENT ADEQUATE
[2020-01-28] MEDS: RINGERS SOLUTION,LACTATED 1,000 ML IV PRN (19:56)
[2020-01-28] MEDS: HYDROMORPHONE HCL INJ/PF 2 MG/ML AMPULE IV PRN (20:01)
[2020-01-29] MEDS: OXYCODONE HCL IR 5 MG TABLET PO PRN ×3 (00:24→10:52)
[2020-01-29] MEDS: RINGERS SOLUTION,LACTATED 1,000 ML IV PRN (04:28)
[2020-01-29] MEDS ORDERED: IBUPROFEN 800 MG TABLET PO PRN (08:00)
[2020-01-29] MEDS ORDERED: CEFAZOLIN 2 GM/D5W RTU 2 GM/50 ML RTUPB IV ONE (08:46)
[2020-01-29] MEDS: SIMETHICONE 80 MG TAB.CHEW PO PRN ×2 (08:56→18:04)
--- NOTE | 2020-01-29 08:56 | PDOC PROGRESS REPORT ---
Subjective Progress Note for:: 01/29/20 Subjective:: Doing well this am. Gonsales out about an hour ago. No void yet. TOlerating PO clears and small amount of solid food last night but has not had her breakfast this am. She has no nausea but feels bloated. Feels gas moving in her belly. Pain meds managing pain well. No f/c. Reason For Visit: D25.9 LEIOMYOMA OF UTERUS, UNSPECIFIED Physical Exam - Physical Exam Vital Signs: Temp Pulse Resp BP Pulse Ox 98.2 F 63 17 99/52 L 100 01/29/20 08:00 01/29/20 08:00 01/29/20 08:00 01/29/20 08:00 01/29/20 08:00 Intake & Output 01/28/20 01/29/20 01/30/20 06:59 06:59 06:59 Intake Total 0 4011 Output Total 1975 Balance 0 2036 Weight 63.96 kg 63.9 kg General appearance: PRESENT: no acute distress Respiratory exam: PRESENT: clear to auscultation [email or web address] Cardiovascular exam: PRESENT: RRR, +S1, +S2 GI/Abdominal exam: PRESENT: normal bowel sounds - Incision dry and intact, soft Extremities exam: PRESENT: full ROM. ABSENT: calf tenderness, clubbing, pedal edema Result Laboratory Results: 01/28/20 18:32 01/25/20 10:05 01/25/20 01/28/20 10:05 18:32 WBC 16.3 H D RBC 5.04 Hgb 10.4 L D Hct 34.7 L MCV 69 L D MCH 20.5 L MCHC 29.8 L RDW 25.2 H Plt Count 308 Seg Neutrophils % Not Reportable Blood Type O POSITIVE Antibody Screen NEGATIVE Assessment & Plan - Diagnosis (1) Uterine fibroid Is this a current diagnosis for this admission?: Yes (2) Abdominal pain Is this a current diagnosis for this admission?: Yes (3) Severe anemia Is this a current diagnosis for this admission?: Yes - Time Time Spent with patient: Less than 15 minutes Within: within 24 hours, within 48 hours - Plan Summary Plan Summary: 34 yo s/p RATNA BS for pelvic pain/uterine fibroid, severe anemia secondary to chronic blood loss from menorrhagia -Doing well this am -Tolerating PO -GOod UOP overnight. Gonsales out this am. Yet to void. Will D/C IVF when tolerat ing PO well. -HGB post-op > 10 -Incsion d/i -Good BS. - Encouraged ambulation and Incentive spirometry -WBC 16 post-op/ Will repeat ancef 2gms IV x1 -Continue current care.
[2020-01-29] MEDS ORDERED: CEFAZOLIN SODIUM 2 GM in DEXTROSE 5%-WATER 100 ML IV ONE (10:00)
[2020-01-29] MEDS: HYDROMORPHONE HCL INJ/PF 2 MG/ML AMPULE IV PRN (14:18)
[2020-01-29] MEDS ORDERED: OXYCODONE HCL SR 10 MG TABLET PO SCH (17:00)
[2020-01-29] MEDS: KETOROLAC TROMETHAMINE INJ/PF 30 MG/1 ML SDV IV PRN (17:56)
[2020-01-30] MEDS: KETOROLAC TROMETHAMINE INJ/PF 30 MG/1 ML SDV IV PRN (03:28)
--- NOTE | 2020-01-30 09:55 | PDOC DISCHARGE SUMMARY ---
Impression - Admit/DC Date/PCP Admission Date/Primary Care Provider: [facility] Discharge Date: 01/30/20 - Discharge Diagnosis (1) Uterine fibroid Is this a current diagnosis for this admission?: Yes (2) Abdominal pain Is this a current diagnosis for this admission?: Yes (3) Severe anemia Is this a current diagnosis for this admission?: Yes - Additional Information Discharge Diet: As Tolerated Discharge Activity: Activity As Tolerated, No Driving - while taking narcotics, No Lifting Over 10 Pounds, No Lifting/Push/Pulling, Pelvic Rest, Slowly Increase Activity, Walk Frequently Referrals: [facility] [Primary Care Provider] - Prescriptions: Docusate Sodium [Colace 100 mg Capsule] 100 mg PO DAILY #30 capsule Ibuprofen [Ibu] 800 mg PO Q8 10 Days #30 tablet Simethicone [Mylicon 80 mg Chewable Tablet] 80 mg PO Q4HP PRN 10 Days #30 tab.chew PRN Reason: Oxycodone HCl [Oxy-Ir 5 mg Tablet] 5 mg PO Q4HP PRN 5 Days #30 tablet PRN Reason: Home Medications: Sertraline HCl 50 mg PO DAILY 01/25/20 Tramadol HCl [Ultram] 50 mg PO DAILY 01/25/20 Docusate Sodium [Colace 100 mg Capsule] 100 mg PO DAILY #30 capsule 01/29/20 Ibuprofen [Ibu] 800 mg PO Q8 10 Days #30 tablet 01/29/20 Oxycodone HCl [Oxy-Ir 5 mg Tablet] 5 mg PO Q4HP PRN 5 Days #30 tablet 01/29/20 Simethicone [Mylicon 80 mg Chewable Tablet] 80 mg PO Q4HP PRN 10 Days #30 tab.chew 01/29/20 History of Present Illiness History of Present Illness: ANDREA LOVELL is a 34 year old female Physical Exam - Physical Exam Vital Signs: Temp Pulse Resp BP Pulse Ox 98.1 F 53 L 16 117/70 98 01/30/20 07:46 01/30/20 07:46 01/30/20 07:46 01/30/20 07:46 01/30/20 07:46 Intake & Output 01/29/20 01/30/20 01/31/20 06:59 06:59 06:59 Intake Total 4011 1560 Output Total 1975 200 Balance 2036 1360 Weight 63.9 kg 67.9 kg Results Laboratory Results: WBC 16.3 10^3/uL (4.0-10.5) H D 01/28/20 18:32 RBC 5.04 10^6/uL (3.72-5.28) 01/28/20 18:32 Hgb 10.4 g/dL (12.0-15.5) L D 01/28/20 18:32 Hct 34.7 % (36.0-47.0) L 01/28/20 18:32 MCV 69 fl (80-97) L D 01/28/20 18:32 MCH 20.5 pg (27.0-33.4) L 01/28/20 18:32 MCHC 29.8 g/dL (32.0-36.0) L 01/28/20 18:32 RDW 25.2 % (11.5-14.0) H 01/28/20 18:32 Plt Count 308 10^3/uL (150-450) 01/28/20 18:32 Lymph % (Auto) Not Reportable 01/28/20 18:32 [place] % (Auto) Not Reportable 01/28/20 18:32 Eos % (Auto) Not Reportable 01/28/20 18:32 Baso % (Auto) Not Reportable 01/28/20 18:32 Absolute Neuts (auto) Not Reportable 01/28/20 18:32 Absolute Lymphs (auto) Not Reportable 01/28/20 18:32 Absolute Monos (auto) Not Reportable 01/28/20 18:32 Absolute Eos (auto) Not Reportable 01/28/20 18:32 Absolute Basos (auto) Not Reportable 01/28/20 18:32 Total Counted 100 01/28/20 18:32 Seg Neutrophils % Not Reportable 01/28/20 18:32 Seg Neuts % (Manual) 95 % (42-78) H 01/28/20 18:32 Lymphocytes % (Manual) 5 % (13-45) L 01/28/20 18:32 Monocytes % (Manual) 0 % (3-13) L 01/28/20 18:32 Eosinophils % (Manual) 0 % (0-6) 01/28/20 18:32 Basophils % (Manual) 0 % (0-2) 01/28/20 18:32 Abs Neuts (Manual) 15.5 10^3/uL (1.7-8.2) H 01/28/20 18:32 Abs Lymphs (Manual) 0.8 10^3/uL (0.5-4.7) 01/28/20 18:32 Abs Monocytes (Manual) 0.0 10^3/uL (0.1-1.4) L 01/28/20 18:32 Absolute Eos (Manual) 0.0 10^3/uL (0.0-0.6) 01/28/20 18:32 Abs Basophils (Manual) 0.0 10^3/uL (0.0-0.2) 01/28/20 18:32 Platelet Comment ADEQUATE 01/28/20 18:32 Hypochromasia SLIGHT 01/28/20 18:32 Poikilocytosis SLIGHT 01/28/20 18:32 Anisocytosis 3+ 01/28/20 18:32 Microcytosis 2+ 01/28/20 18: Ovalocytes SLIGHT 01/28/20 18:32 Sodium 140.2 mmol/L (137-145) 01/25/20 10:05 Potassium 4.4 mmol/L (3.6-5.0) 01/25/20 10:05 Chloride 107 mmol/L (98-107) 01/25/20 10:05 Carbon Dioxide 23 mmol/L (22-30) 01/25/20 10:05 Anion Gap 10 (5-19) 01/25/20 10:05 BUN 8 mg/dL (7-20) 01/25/20 10:05 Creatinine 0.62 mg/dL (0.52-1.25) 01/25/20 10:05 Est GFR ( Amer) > 60 (>60) 01/25/20 10:05 Est GFR (MDRD) Non-Af > 60 (>60) 01/25/20 10:05 Glucose 84 mg/dL (75-110) 01/25/20 10:05 Calcium 9.0 mg/dL (8.4-10.2) 01/25/20 10:05 Total Bilirubin 0.4 mg/dL (0.2-1.3) 01/25/20 10:05 Direct Bilirubin 0.2 mg/dL (0.0-0.4) 01/25/20 10:05 Neonat Total Bilirubin Not Reportable 01/25/20 10:05 Neonat Direct Bilirubin Not Reportable 01/25/20 10:05 Neonat Indirect Bili Not Reportable 01/25/20 10:05 AST 23 U/L (14-36) 01/25/20 10:05 ALT 6 U/L (<35) 01/25/20 10:05 Alkaline Phosphatase 47 U/L (38-126) 01/25/20 10:05 Total Protein 8.2 g/dL (6.3-8.2) 01/25/20 10:05 Albumin 4.5 g/dL (3.5-5.0) 01/25/20 10:05 Serum HCG, Qual NEGATIVE (NEGATIVE) 01/28/20 06:29 Urine Color YELLOW 01/25/20 10:05 Urine Appearance SLIGHTLY-CLOUDY 01/25/20 10:05 Urine pH 5.0 (5.0-9.0) 01/25/20 10:05 Ur Specific Wright 1.021 01/25/20 10:05 Urine Protein NEGATIVE mg/dL (NEGATIVE) 01/25/20 10:05 Urine Glucose (UA) NEGATIVE mg/dL (NEGATIVE) 01/25/20 10:05 Urine Ketones NEGATIVE mg/dL (NEGATIVE) 01/25/20 10:05 Urine Blood NEGATIVE (NEGATIVE) 01/25/20 10:05 Urine Nitrite NEGATIVE (NEGATIVE) 01/25/20 10:05 Urine Bilirubin NEGATIVE (NEGATIVE) 01/25/20 10:05 Urine Urobilinogen NEGATIVE mg/dL (<2.0) 01/25/20 10:05 Ur Leukocyte Esterase NEGATIVE (NEGATIVE) 01/25/20 10:05 Urine WBC (Auto) 6 /HPF 01/25/20 10:05 Urine RBC (Auto) 2 /HPF 01/25/20 10:05 Squamous Epi Cells Auto 2 /HPF 01/25/20 10:05 Urine Mucus (Auto) MOD /LPF 01/25/20 10:05 Urine Ascorbic Acid NEGATIVE (NEGATIVE) 01/25/20 10:05 Slides for Path Review SEE COMMENT 01/28/20 06:29 Blood Type O POSITIVE 01/25/20 10:05 Blood Type Confirm O POSITIVE 01/28/20 06:29 Antibody Screen NEGATIVE 01/25/20 10:05 Crossmatch See Detail 01/25/20 10:05 Stroke Is this a Stroke Patient?: No Acute Heart Failure - Is this a Heart Failure Patient?: No
[2020-01-30 10:32] VITALS: BP 110/68
== END 2020-01-30 10:50 | disposition home or self-care (01) ==
LOC: OROUT 05:29 → 2N 15:59 → OROUT 01-30 10:50
PROVIDERS: ATTEND Obstetrics & Gynecology
DX: D25.9 Leiomyoma of uterus, unspecified (principal); N83.8 Other noninflammatory disorders of ovary, fallopian tube and broad ligament; R10.9 Unspecified abdominal pain; D64.9 Anemia, unspecified; F17.210 Nicotine dependence, cigarettes, uncomplicated
CPT/HCPCS: 58150; 86900 ×2; 86901 ×2; 36415 ×2; 36430; 86850; 84703; 85027 ×2; 80053; 81001; 86920; 88307 ×2; 94799; 00840; P9016; J2250; J0690 ×2; J3490 ×2; J1100; J3010; J1885 ×2; J2270; J2710; J1170 ×2; J0330; J2405; J7060; J7120 ×2; J2704; 840

== ENCOUNTER → 2020-06-22 | Outpatient (CLI) | payer OTHER, BC ==
--- NOTE | 2020-06-22 10:09 | ER RDC ASSESSMENT REPORT ---
Intake - In the Last 14 days Have you traveled outside [place]?: No Have you been in close contact with someone CONFIRMED: No Worked in Healthcare?: No - Symptoms Subjective Fever([place] feverish): Yes Chills: No Muscule Aches: Yes Runny Nose: Yes Sore Throat: No Cough (New or worsening chronic cough): No Shortness of breath: No Nausea or Vomiting: No Headache: Yes Abdominal Pain: No Diarrhea(3 or more loose stools in last 24 hours): No - Do you have any of the following Chronic lung disease: Asthma or emphysema or COPD: No Cystic Fibrosis: No Diabetes: No High Blood Pressure: No Cardiovascular Disease: No Chronic Kidney Disease: No Chronic Liver Disease: No Chronic blood disorder like Sickle Cell Disease: No Weak immune system due to disease or medication: No Neurologic condition that limits movement: No Developmental delay - Moderate to Severe: No Recent (within past 2 weeks) or current : No Morbid Obesity (>100 pounds over ideal weight): No - Objective Temperature: 97.7 F Pulse Rate: 62 Respiratory Rate: 14 Blood Pressure: 116/65 O2 Sat by Pulse Oximetry: 100 Objective: Given above, testing performed: covid Disposition: Home; Selfcare General - General Chief Complaint: Other Time Seen by Provider: 06/22/20 09:45 Mode of Arrival: Ambulatory Information source: Patient - HPI Notes: 34-year-old female presents to [facility] clinic for COVID-19 testing. Patient reports no known exposure to COVID positive individual. Onset of symptoms 06/10/2020. She is currently complaining of mild subjective fever, muscle aches, runny nose, headache, and some abdominal discomfort. Denies any significant fever, chills, sore throat, cough, shortness of breath, nausea, or diarrhea. - Related Data Allergies/Adverse Reactions: lactose Adverse Reaction (Intermediate, Verified 01/28/20 20:08) acetaminophen Adverse Reaction (Verified 01/28/20 06:49) Past Medical History - General Information source: Patient - Social History Smoking Status: Current Every Day Smoker Family History: Reviewed & Not Pertinent - Past Medical History Cardiac Medical History: Reports: None Denies: Hx Coronary Artery Disease, Hx Heart Attack, Hx Hypertension Pulmonary Medical History: Reports: None Denies: Hx Asthma, Hx Bronchitis, Hx COPD, Hx Pneumonia EENT Medical History: Reports: None Neurological Medical History: Reports: None. Denies: Hx Cerebrovascular Accident, Hx Seizures Endocrine Medical History: Reports: None Renal/ Medical History: Reports: None. Denies: Hx Peritoneal Dialysis Malignancy Medical History: Reports: None GI Medical History: Reports: Hx Ulcer Musculoskeletal Medical History: Reports None, Denies Hx Arthritis Skin Medical History: Reports None Psychiatric Medical History: Reports: None Traumatic Medical History: Reports: None Infectious Medical History: Reports: None Past Surgical History: Reports: Hx Hysterectomy, Hx Tonsillectomy Physical Exam - General General appearance: Appears well, Alert In distress: None Notes: PHYSICAL EXAMINATION: GENERAL: Well-appearing and in no acute distress. HEAD: Atraumatic, normocephalic. EYES: sclera anicteric, conjunctiva are normal. ENT: nares patent. Moist mucous membranes. NECK: Normal range of motion, supple without lymphadenopathy. LUNGS: No increased work of breathing. Lung sounds CTAB and equal. No wheezes rales or rhonchi. HEART: Regular rate and rhythm without murmurs. ABDOMEN: Soft, nontender, normal bowel sounds, no guarding. EXTREMITIES: Normal range of motion, no pitting edema. No cyanosis. NEUROLOGICAL: A&O x 3. Normal speech. PSYCH: Normal mood, normal affect. SKIN: Warm, Dry, normal turgor, no rashes or lesions noted Diagnostic Results Laboratory Results: COVID pending Patient Education/Counseling Counseling/Education: Patient presents with symptoms associated with possible Covid 19 infection. Patient does not have emergency worrying symptoms such as difficulty breathing, shortness of breath, chest pain, pressure, confusion or cyanosis. Patient appears suitable for discharge as vital signs are stable and patient is nontoxic in appearance. Good return precautions have been discussed with patient, patient verbalized understanding and is agreeable with discharge plan of care at this time. Guidance for worsening S/SX: As a person under investigation for Covid 19, the [place] department of Health and Human Services, division of public health advises you to adhere to the following guidance until your test results are reported to you. If your test result is positive, you will receive additional information from your provider and your local health department at that time. Remain at home until you are cleared by the health provider or public health authorities. Keep a log of visitors to your home, notify any visitors to your home of your isolation status. If you plan to move to a new address or leave the county, notify the local health department in your County. Call your doctor or seek care if you have an urgent medical need. Before seeking medical care, call ahead to get instructions from the provider before ar riving at the medical office clinic or hospital. Notify them that you are being tested for the virus that causes Covid 19 so that arrangements can be made, as necessary, to prevent transmission to others in the healthcare setting. Next, notify the local health department in your county. If a medical emergency arises and you need to call 911, inform the first responders that you are being tested for the virus that causes Covid 19. Next, notify the local health department in your county. RDC Discharge - Discharge Clinical Impression: Encounter for screening laboratory testing for COVID-19 virus Condition: Good Disposition: Home; Selfcare
[2020-06-22 10:10] VITALS: BP 116/65
== END ==
LOC: RDC 09:20
PROVIDERS: ATTEND Registered Nurse
DX: Z20.828 Contact with and (suspected) exposure to other viral communicable diseases (principal); R50.9 Fever, unspecified; R09.89 Other specified symptoms and signs involving the circulatory and respiratory systems; M79.10 Myalgia, unspecified site; F17.200 Nicotine dependence, unspecified, uncomplicated; R51 Headache; Z88.6 Allergy status to analgesic agent
CPT/HCPCS: 87635; C9803; 99201; 99211